=== PATIENT | male | born 1970 | race American Indian/Alaskan Native ===

== ENCOUNTER 2016-08-05 05:57 | Observation (INO) | payer OTHER, MEDICARE ==
[2016-07-31 13:40] LABS: Hematocrit 41.8 % (35.5-45.6); Hemoglobin 13.8 gm/dl (11.8-15.2); Mean Corpuscular HGB Conc 33 % (32-34); Mean Corpuscular Hemoglobin 30 pg (28-32); Mean Corpuscular Volume 90 fl (84-94); Platelet Count 200 K/mm3 (140-440); Red Blood Count 4.66 M/mm3 (3.65-5.03); Red Cell Distribution Width 13.3 % (13.2-15.2); White Blood Count 4.9 K/mm3 (4.5-11.0)
--- NOTE | 2016-07-31 13:43 | Anesthesia Consultation ---
Anesthesia Consult and Med Hx - Airway Anesthetic Teeth Evaluation: Good ROM Head & Neck: Inadequate Mental/Hyoid Distance: Inadequate Mallampati Class: Class II Intubation Access Assessment: Possibly Difficult (pt to have ACDF hurts to move side to side - scope or Storz probably needed) - Pulmonary Exam CTA: Yes - Pre-Operative Health Status ASA Pre-Surgery Classification: ASA2 Proposed Anesthetic Plan: General (no anesthesia problems) - Pulmonary Hx Asthma: Yes (will take asthma meds as usual on day of surgery) - Cardiovascular System Hx Heart Attack/AMI: Yes (05/2016 - seeing filler and trimmer prior to surgery) - Central Nervous System Hx Neuromuscular Disorder: No (takes tizanidine for muscle spasms; several meds for pain) Hx Psychiatric Problems: No (xanax - anxiety) - Gastrointestinal Hx Ulcer: No (GI distress EGD before surgery) Hx Gastroesophageal Reflux Disease: Yes (takes nexium) - Other Systems Hx Obesity: Yes
[2016-07-31 13:50] LABS: INR 1.05 (0.87-1.13); Partial Thromboplastin Time 31.6 Sec. (24.2-36.6)
[2016-07-31 13:54] LABS: Alanine Aminotransferase 64 units/L (7-56); Albumin 4.2 g/dL (3.9-5); Albumin/Globulin Ratio 1.6 %; Alkaline Phosphatase 83 units/L (35-129); Anion Gap 15 mmol/L; BUN/Creatinine Ratio 7.27; Bilirubin,Total 0.2 mg/dL (0.1-1.2); Blood Urea Nitrogen 8 mg/dL (9-20); Calcium 9.3 mg/dL (8.4-10.2); Carbon Dioxide 26 mmol/L (22-30); Chloride 100.3 mmol/L (98-107); Glucose 116 mg/dL (75-100); Potassium 3.8 mmol/L (3.6-5.0); Sodium 137 mmol/L (137-145); Total Protein 6.9 g/dL (6.3-8.2)
[~2016-08-05 05:57] MED LIST: GELFOAM TP ONE; LACTATED RINGERS 1,000 ML IV SCH; MARCAINE 0.5% INFILTRATI ONE; NACL 0.9% 250ML IV ONE; NACL P/F VIAL (10 ML) IV ONE; PEPCID IV NR; THROMBIN (BOVINE) TP ONE; VERSED IV NR
[2016-08-05] MEDS ORDERED: SUBLIMAZE IV ONE (06:57)
[2016-08-05] MEDS: SUBLIMAZE IV NR ×2 (07:16→07:38)
[2016-08-05] MEDS ORDERED: MARCAINE 0.5% 0 ML INFILTRATI ONE (07:24)
[2016-08-05] MEDS ORDERED: MINERAL OIL TOPICAL LIGHT TP ONE (07:24)
[2016-08-05] MEDS ORDERED: PAPAVERINE ONE (07:24)
[2016-08-05] MEDS ORDERED: ANTIBIOTIC OINT TP ONE (07:25)
[2016-08-05] MEDS ORDERED: NACL 0.9% 250ML 250 ML ONE ×2 (07:25→07:51)
[2016-08-05] MEDS ORDERED: NACL P/F VIAL (10 ML) 10 ML ONE (07:25)
[2016-08-05] MEDS ORDERED: AVITENE TP ONE (07:25)
[2016-08-05] MEDS ORDERED: GELFOAM TP ONE ×2 (07:26→10:51)
[2016-08-05] MEDS ORDERED: XYLOCAINE 1%/ EPI 1:100,000 INFILTRATI ONE ×2 (07:26→09:00)
[2016-08-05] MEDS ORDERED: THROMBIN (BOVINE) TP ONE ×3 (07:26→10:51)
[2016-08-05] MEDS ORDERED: OSMITROL 20% 500 ML ONE (07:26)
[2016-08-05] MEDS ORDERED: DIPRIVAN 10 MG/ML 1,000 MG/100 ML BOTTLE IV ONE ×2 (07:27→10:31)
[2016-08-05] MEDS ORDERED: BACITRACIN ONE (07:27)
[2016-08-05] MEDS ORDERED: XYLOCAINE MPF 2% ONE (07:34)
[2016-08-05] MEDS ORDERED: REGLAN ONE (07:34)
[2016-08-05] MEDS ORDERED: QUELICIN ONE (07:34)
[2016-08-05] MEDS ORDERED: ZOFRAN ONE (07:34)
[2016-08-05] MEDS ORDERED: VERSED ONE (07:35)
[2016-08-05] MEDS ORDERED: DIPRIVAN 10 MG/ML IV ONE ×2 (07:35)
[2016-08-05] MEDS ORDERED: SUBLIMAZE ONE ×3 (07:35→10:43)
[2016-08-05] MEDS ORDERED: CALCIUM CHLORIDE IV ONE (07:42)
[2016-08-05] MEDS ORDERED: NEO SYNEPHRINE ONE (07:52)
[2016-08-05] MEDS ORDERED: ULTIVA 4 MG in NACL 0.9% 80 ML IV ONE (08:00)
[2016-08-05] MEDS ORDERED: VANCOMYCIN/NS 1 GM/250 ML 1 GM/250 ML BAG IV ONE (08:20)
[2016-08-05] MEDS ORDERED: NACL 0.9% ONE (08:23)
[2016-08-05] MEDS ORDERED: KETALAR IV ONE (08:52)
[2016-08-05] MEDS ORDERED: VANCOMYCIN/NS 1 GM/250 ML 1 GM/250 ML BAG IV NR (09:00)
[2016-08-05] MEDS ORDERED: NACL 0.9% 250ML IV ONE (09:20)
[2016-08-05] MEDS ORDERED: BACITRACIN IR ONE (09:29)
[2016-08-05] MEDS ORDERED: NACL P/F VIAL (10 ML) IV ONE (09:29)
[2016-08-05] MEDS ORDERED: NACL 0.9% IR ONE (09:31)
[2016-08-05] MEDS ORDERED: DECADRON ONE (09:50)
[2016-08-05] MEDS ORDERED: [UNRECOGNIZED DRUG - OTHER] IV ONE (11:00)
[2016-08-05] MEDS ORDERED: NACL 0.9% IV ONE (11:00)
--- NOTE | 2016-08-05 12:08 | Operative Report ---
Operative Report Operative Report: DATE OF PROCEDURE: 08/05/2016 PREOPERATIVE DIAGNOSIS: Cervical spondylosis with radiculopathy POSTOPERATIVE DIAGNOSIS: Spondylosis with radiculopathy OPERATIVE PROCEDURE: 1. Anterior cervical arthrodesis C6 7 2. Interbody biomechanical graft placement C6/7 SURGEON: Milly Ellison MD CIRCLE CUTTING SAW OPERATOR: Lillie LAMBERT ANESTHESIA: General endotracheal anesthesia EBL: 200 mL INDICATIONS FOR PROCEDURE: [] FINDINGS: Large posterior osteophyte causing significant cord compression at C6 7, extension of epidural compression behind the body of C7 PROCEDURE: The patient was brought to the operating room and placed on the operating table in the supine position. The patient underwent general endotracheal anesthesia without complication. After all lines were placed including monitoring the right neck was prepped and draped in a sterile fashion. After an appropriate time out was taken the area of intended incision was infiltrated with 1% lidocaine with epinephrine. The skin was opened using a 10 blade and carried down to the platysma. The platysma was divided sharply and the anterior cervical strap muscles were dissected bluntly. The anterior cervical spine was approached and a self-retaining retractor was placed under the longus colli muscles. The microscope was brought into the field and the discectomy was begun by making an incision in the disc space of C6 7. The anterior aspect of the C6 7 disc was removed using a combination of curettes and pituitary rongeurs. The posterior aspect of the disc and osteophyte was removed using a high-speed drill and Kerrison rongeurs. The posterior longitudinal ligament was incised and the thecal sac decompressed. Bilateral foraminotomies were performed and the neural foramen were checked to ensure no remaining disc or osteophyte was present. Hemostasis was obtained and the endplates were prepared for fusion by removing the remainder of the cartilaginous portion. Biomechanical grafts were then sized packed with bone growth stimulator. The graft then placed in the C6 7 interspace and secured using titanium plates provided by [employer]. Hemostasis was obtained and the platysma was reapproximated using 3-0 Vicryl and finally 4-0 Monocryl for the skin. The lap sponge and needle count was correct at the end of the procedure, the patient tolerated the procedure well and was taken to the recovery room extubated and in good condition.
--- NOTE | 2016-08-05 12:51 | Post Anesthesia Evaluation ---
- Post Anesthesia Evaluation Patient Participated: No Airway Patent: Yes Stable Respiratory Function: Yes Nausea/Vomiting: No Temp > 96.8F: Yes Pain Manageable: Yes Adequeate Hydration: Yes Anesthesia Complications: No Block Receding Appropriately: Not Applicable Patient on Ventilator: No
[2016-08-05] MEDS: DILAUDID IV PRN ×5 (13:24→19:39)
[2016-08-05] MEDS ORDERED: NACL 0.9% 1000 ML 1,000 ML ONE (13:46)
--- NOTE | 2016-08-05 14:40 | XRay Report ---
Operative cervical spine: Myelopathy. A lateral projection demonstrates a metal pointer at the level of C6. There is mild spondylosis from C4-C6. No other information. Operative cervical spine: There is an anterior probe identifying the C6 body. There is an anterior fusion at C6-7 with a spacer in good position on this single projection. Findings otherwise unchanged from preoperative exam above.
[2016-08-05] MEDS ORDERED: NORCO 5/325 ONE (14:53)
[2016-08-05] MEDS: NORCO 5/325 PO PRN ×3 (15:03→22:19)
[2016-08-05] MEDS ORDERED: NORCO 5/325 PO PRN (18:55)
[2016-08-05] MEDS ORDERED: CEPACOL X STRENGTH MM PRN (18:55)
[2016-08-05] MEDS ORDERED: PROAIR IH PRN (18:55)
[2016-08-05] MEDS ORDERED: AMBIEN PO PRN (18:55)
[2016-08-05] MEDS ORDERED: PHENERGAN PR PRN (18:55)
[2016-08-05] MEDS ORDERED: ZOFRAN IV PRN (18:55)
[2016-08-05] MEDS ORDERED: CATAPRES PO PRN (18:55)
[2016-08-05] MEDS ORDERED: NARCAN 0.4 MG/1 ML IV PRN (18:55)
[2016-08-05] MEDS ORDERED: MILK OF MAGNESIA PO PRN (18:55)
[2016-08-05] MEDS ORDERED: NACL 0.9% 1000 ML 1,000 ML IV SCH (18:55)
[2016-08-05] MEDS ORDERED: BENADRYL PO PRN (18:55)
[2016-08-05] MEDS ORDERED: FLEXERIL PO PRN (18:55)
[2016-08-05] MEDS ORDERED: NON-FORMULARY (Tizanidine Hcl [Tizanidine] 2 MG) PO SCH (18:55)
[2016-08-05] MEDS ORDERED: XANAX PO PRN (18:55)
[2016-08-05] MEDS ORDERED: PERCOCET 5/325 PO PRN (18:57)
[2016-08-05] MEDS ORDERED: PROVENTIL IH PRN (19:15)
[2016-08-05] MEDS ORDERED: ZANAFLEX PO SCH (20:00)
[2016-08-05] MEDS: PULMICORT IH SCH (20:37)
[2016-08-05] MEDS: BROVANA NEBU IH SCH (20:37)
--- NOTE | 2016-08-05 20:56 | Admit Criteria Form ---
Admission Criteria Documentation: AMBULATORY SURGERY EXCEPTION CRITERIA Ambulatory Surgery Exception Criteria ( Place 'X' for any and all applicable criteria): Surgery or procedure performed on ambulatory basis may require inpatient stay for[A] ANY ONE of the following(1)(2)(3)(4)(5)(6)(7)(8)(9): [X] I. A preoperative situation, condition, or finding that warrants inpatient stay as indicated by ANY ONE of the following: [X] a) Inpatient care needed because of severity of a disease or condition rather than the surgery (eg, severe cardiac or respiratory disease, severe infection) (15) (16 ) (17) (18) [] b) Emergent procedure (eg, angioplasty for acute ischemia)(19) [] c) Complex surgical approach or situation as indicated by ANY ONE of the following(3): [] i) Open approach needed instead of usual endoscopic, transcatheter, or other less invasive procedure [] ii) Difficult approach because of previous operation [] iii) Airway monitoring required after open neck procedures(20)(21) [] iv) Large mass requiring unusually extensive dissection [] v) Additional complicating feature requiring inpatient care (eg, drain management)(22(23): [] d) Major surgery in a pt with high anesthetic risk as indicated by ANY ONE of the following (2)(3)(5)(7)(8): [] i) ASA risk class III or higher (severe systemic disease impairing function) [D] [] ii) Advanced age (eg, older than 85 years)(14)(24) [] iii) Symptomatic heart failure(25) [] iv) Symptomatic asthma or COPD(8)(21) [] v) Morbid obesity with hemodynamic or respiratory problems(20)( 21)(26)(27) [] vi) Obstructive sleep apnea(20)(21) [] vii) Former premature infants who are younger than 60 weeks [] viii) High risk for severe postoperative abnormalities (eg, severe postoperative hypocalcemia after parathyroidectomy for severe hyperparathyroidism)(27)( 28) [] ix) Unstable angina(25) [] e) Drug-related risk requiring inpatient stay as indicated by ANY ONE of the following(5)(10)(14)(32)(33) [] i) Procedure requires discontinuing drugs or other therapy (eg , antiarrhythmic medication, antiseizure medication), which necessitates inpatient observation or treatment.(18)(31) [] ii) Major surgery and high risk drug use as indicated by ANY ONE of the following: [] 1) Active abuse of cocaine or similar drug [] 2) Monoamine oxidase inhibitor use [] 3) Other drug identified as posing risk [] f) Inadequate outpatient care situation as indicated by ANY ONE of the following(5)(10)(14)(32)(33) [] i) Patient lives remote from medical facility and procedure has urgent complication potential, and temporary nearby residence cannot be arranged [] ii) Patient will have postprocedure incapacitation and inadequate assistance at home, or alternative level of care cannot be arranged. [] iii) Patient will have long general anesthesia or procedure side effect resolution time, and competent person to stay with patient on first postoperative night at home or alternative level of care cannot be arranged. []iv) Other inadequate outpatient situation that cannot be handled by other means [] II. A perioperative event, condition, or finding that warrants inpatient stay as indicated by ANY ONE of the following (1)(2)(3): [] a) Inadequate physiologic recovery: cardiovascular, respiratory, or hemodynamic status not normal or near preoperative baseline(18) [] b) Hemodynamic instability [] c) Patient not alert with near normal or baseline mental status [] d) Temperature not normal or as expected and not appropriate for outpatient treatment of condition [] e) Ambulatory or appropriate activity level status not yet achieved post procedure [E](34)(35)(36) [] f) Operative site not appropriate (eg, unexpected or excessive drainage or bleeding) [] g) Postoperative effects not resolved or adequately managed (eg, significant pain or vomiting not appropriate for outpatient or next level of care)(10)(12) [] h) Complicating features requiring inpatient care as indicated by ANY ONE of the following(37): [] i) Severe complications of procedure (eg, bowel injury, airway compromise, vascular injury,severe hemorrhage) [] ii) Extensive (eg, dissection far beyond usual scope of procedure ) or prolonged (eg, 120 minutes beyond usual) surgery needed requiring inpatient postoperative care [] iii) Conversion to an open or complex procedure that requires inpatient care (eg, open vs laparoscopic cholecystectomy, abdominal vs vaginal hysterectomy)(38) [] iv) Comorbid condition or test result identified during or post procedure that requires inpatient care (7) [] v) Malignant hyperthermia(30) [] vi) Other complicating feature requiring inpatient care(22)(23) Inpatient stay may be needed until ALL of the following are present (1)(2)(3)(4) (5)(6)(10)(14)(33)(40): []a) Physiologic recovery: cardiovascular, respiratory, and hemodynamic status normal or near preoperative baseline []b) Hemodynamic stability []c) Patient alert, with near normal or baseline mental status []d) Temperature appropriate: patient afebrile or temperature appropriate for outpt treatment of condition []e) Activity level appropriate: ambulatory or appropriate activity level post procedure []f) Operative site appropriate as indicated by ALL of the following: []i) Site dry or with expected drainage []ii) Any blood noted is as expected for procedure. []g) Postoperative effects resolved or managed as indicated by ALL of the following: []i) Pain management appropriate for outpatient (or next level of) care(10) []ii) Minimal nausea and vomiting: if present, successfully treated with oral medication(12) []iii) Headache, dizziness, or drowsiness (if present) are mild. []h) Voiding status acceptable as indicated by ANY ONE of the following: []i) Voiding spontaneously []ii) No voiding but instructions given for follow-up in 6 to 8 hours []iii) Urinary catheter in place, and instructions given for follow-up []i) Complicating features requiring inpatient care manageable at a lower level of care(37) []j) Comorbid conditions manageable at a lower level of care(37) The original [employer] content created by [employer] has been revised. The portions of the content which have been revised are identified through the use of italic text or in bold, and [employer] has neither reviewed nor approved the modified material. All other unmodified content is copyright [employer]. Please see references footnoted in the original [employer] edition 2016 Admission Criteria Met: Yes
[2016-08-05] MEDS ORDERED: VANCOMYCIN/NS 1 GM/250 ML 1 GM/250 ML BAG IV SCH (22:00)
[2016-08-05] MEDS ORDERED: NON-FORMULARY (Budesoni/Formotero 160-4.5(Nf) 2 PUFF) IH SCH (22:00)
[2016-08-05] MEDS ORDERED: NON-FORMULARY (Pregabalin [Lyrica] 100 MG) PO SCH (22:00)
[2016-08-05] MEDS: PEPCID PO SCH (22:14)
[2016-08-05] MEDS: LYRICA PO SCH (22:14)
[2016-08-05] MEDS: COLACE PO SCH (22:16)
[2016-08-05] MEDS: SENOKOT PO SCH (22:16)
[2016-08-06] MEDS: DILAUDID IV PRN (03:50)
[2016-08-06] MEDS: ZANAFLEX PO SCH ×2 (04:04→10:14)
[2016-08-06 08:29] VITALS: BP 131/69
--- NOTE | 2016-08-06 08:48 | XRay Report ---
AP lateral of the cervical spine. History: Postop fusion. Findings: A disc space implant is seen at the C6-7 level in satisfactory position. Alignment throughout the cervical spine is normal. No radiographically signs of complications are seen.
--- NOTE | 2016-08-06 09:07 | Short Stay Summary ---
Short Stay Documentation Date of service: 08/06/16 - History H&P: obtained from office - Allergies and Medications Current Medications: Allergies morphine Allergy (Verified 08/05/16 06:46) Vomiting shellfish derived Adverse Reaction (Verified 07/22/16 15:26) Anaphylaxis Home Medications Medication Instructions Recorded Confirmed Last Taken Type ALPRAZolam [Xanax TAB] 0.25 mg PO TID PRN 07/22/16 08/05/16 08/05/16 History Budesoni/Formotero 160-4.5(Nf) 2 puff IH BID 07/22/16 08/05/16 08/05/16 History [Symbicort 160-4.5 (Nf)] Buprenorphine [Butrans] 1 each TD QWEEK 07/22/16 08/05/16 08/04/16 History Esomeprazole Magnesium [NexIUM] 40 mg PO QDAY 07/22/16 08/05/16 08/04/16 History Pregabalin [Lyrica] 100 mg PO BID 07/22/16 08/05/16 08/04/16 History Tizanidine HCl [tiZANidine] 2 mg PO Q6HR 07/22/16 08/05/16 08/04/16 History ALBUTEROL Inhaler [Proair] 2 puff IH QID PRN 08/05/16 08/05/16 08/05/16 History Ondansetron [Zofran TAB] 8 mg PO PRN PRN 08/05/16 08/05/16 Unknown History Active Medications Acetaminophen/Hydrocodone Bitart (Eden 5/325) 2 each PO Q6H PRN PRN Reason: Pain, Moderate (4-6) Last Admin: 08/05/16 22:19 Dose: 2 each Acetaminophen/Hydrocodone Bitart (Eden 5/325) 1 each PO Q6H PRN PRN Reason: Pain, Moderate (4-6) Albuterol (Proventil) 2.5 mg IH QIDRT PRN PRN Reason: Shortness Of Breath Alprazolam (Xanax) 0.25 mg PO TID PRN PRN Reason: Anxiety Last Admin: 08/05/16 22:16 Dose: 0.25 mg Arformoterol Tartrate (Brovana Nebu) 15 mcg IH Q12HRT RUT Last Admin: 08/05/16 20:37 Dose: 15 mcg Benzocaine/Menthol (Cepacol X Strength) 1 each MM Q1H PRN PRN Reason: Sore Throat Last Admin: 08/05/16 22:23 Dose: 1 each Budesonide (Pulmicort) 0.5 mg IH Q12HRT [facility] Last Admin: 08/05/16 20:37 Dose: 0.5 mg Clonidine HCl (Catapres) 0.1 mg PO Q4H PRN PRN Reason: SBP>165 Cyclobenzaprine HCl (Flexeril) 10 mg PO Q8H PRN PRN Reason: Muscle Spasm Diphenhydramine HCl (Benadryl) 25 mg PO Q6H PRN PRN Reason: Itching Docusate Sodium (Colace) 100 mg PO BID [facility] Last Admin: 08/05/16 22:16 Dose: 100 mg Famotidine (Pepcid) 20 mg PO BID [facility] Last Admin: 08/05/16 22:14 Dose: 20 mg Hydromorphone HCl (Dilaudid) 0.5 mg IV Q3H PRN PRN Reason: Pain , Severe (7-10) Last Admin: 08/06/16 03:50 Dose: 0.5 mg Sodium Chloride (Nacl 0.9% 1000 Ml) 1,000 mls @ 75 mls/hr IV DIRECT [facility] Last Admin: 08/06/16 04:07 Dose: 75 mls/hr Magnesium Hydroxide (Milk Of Magnesia) 30 ml PO Q4H PRN PRN Reason: Constipation Miscellaneous Medication (Buprenorphine [Butrans]) 1 each TD QWEEK [facility] Naloxone HCl (Narcan 0.4 Mg/1 Ml) 0.1 mg IV Q2MIN PRN PRN Reason: Res Rate </= 8 or 02 SAT < 92% Ondansetron HCl (Zofran) 4 mg IV Q8H PRN PRN Reason: Nausea And Vomiting Last Admin: 08/05/16 22:23 Dose: 4 mg Oxycodone/Acetaminophen (Percocet 5/325) 2 tab PO Q6H PRN PRN Reason: Pain, Moderate (4-6) Pregabalin (Lyrica) 100 mg PO BID [facility] Last Admin: 08/05/16 22:14 Dose: 100 mg Promethazine HCl (Phenergan) 25 mg MT Q6H PRN PRN Reason: Nausea And Vomiting Senna (Senokot) 8.6 mg PO BID [facility] Last Admin: 08/05/16 22:16 Dose: 8.6 mg Tizanidine HCl (Zanaflex) 2 mg PO Q6H [facility] Last Admin: 08/06/16 04:04 Dose: 2 mg Zolpidem Tartrate (Ambien) 5 mg PO QHS PRN PRN Reason: Sleep - Disposition Condition at discharge: Good Disposition: DISCHARGED TO HOME OR SELFCARE Short Stay Discharge Plan Activity: advance as tolerated Weight Bearing Status: Weight Bear as Tolerated Diet: low cholesterol Wound: open to air Follow up with: LOUISE LEE MD [Primary Care Provider] - 7 Days Prescriptions: oxyCODONE [Roxicodone TAB] 5 mg PO Q6HR PRN #30 tablet PRN Reason: Pain
[2016-08-06] MEDS: BROVANA NEBU IH SCH (09:50)
[2016-08-06] MEDS: PULMICORT IH SCH (09:50)
[2016-08-06] MEDS: LYRICA PO SCH (10:13)
[2016-08-06] MEDS: SENOKOT PO SCH (10:14)
[2016-08-06] MEDS: PEPCID PO SCH (10:14)
[2016-08-06] MEDS: COLACE PO SCH (10:14)
[2016-08-12] MEDS ORDERED: BUPRENORPHINE TD SCH (10:00)
== END 2016-08-06 11:10 | disposition home or self-care (01) ==
LOC: OR 05:57 → 3A 08:20 → 2B-SURG 14:24
PROVIDERS: ADMIT Neurological Surgery; ATTEND Neurological Surgery
DX: M47.22 Other spondylosis with radiculopathy, cervical region (principal); M47.12 Other spondylosis with myelopathy, cervical region; M50.023 Cervical disc disorder at C6-C7 level with myelopathy; J45.909 Unspecified asthma, uncomplicated; I25.2 Old myocardial infarction; E66.9 Obesity, unspecified
CPT/HCPCS: 22551; 36415; 72020; 72040; 80053; 85027; 85610; 85730; 88304; 94640; 96365; 96375; 96376; 97161; A4649; G0378; G8978; G8979; G8980; J0330; J1100; J1170; J2250; J2370; J2405; J2704; J2765; J3010; J3370; J7030; J7050; J7120; L8699; J2150; J2440